=== PATIENT | female | born 1980 | race Caucasian/White ===

== ENCOUNTER 2017-02-19 09:42 | Emergency (ER) | payer OTHER ==
[2017-02-19 11:22] LABS: HEMOGLOBIN 15.3 gm/dl (12.3-15.3); RED BLOOD COUNT 4.74 M/UL (4.00-5.10); WHITE BLOOD COUNT 5.3 K/UL (4.5-11.0)
[2017-02-19 11:42] LABS: BUN/CREATININE RATIO 15 (0-10)
== END 2017-02-19 15:40 | disposition home or self-care (01) ==
LOC: ER1 09:42
PROVIDERS: Physician Assistant
DX: R10.84 Generalized abdominal pain (principal); R19.7 Diarrhea, unspecified; Z88.8 Allergy status to other drugs, medicaments and biological substances; Z88.0 Allergy status to penicillin; Z79.899 Other long term (current) drug therapy
CPT/HCPCS: 36415; 80053; 81001; 82270; 84703; 85025; 96361; 96374; 96375; 96376; 99284; J2270; J2405; J7030; J7050; Q9962

== ENCOUNTER → 2017-02-20 | Outpatient (CLI) | payer OTHER | LOC: OPSV 08:30 | DX: K51.90 Ulcerative colitis, unspecified, without complications (principal) ==

== ENCOUNTER → 2017-02-22 | Outpatient (CLI) | payer OTHER ==
[2017-02-22 10:03] LABS: HEMOGLOBIN 13.7 gm/dl (12.3-15.3); RED BLOOD COUNT 4.31 M/UL (4.00-5.10); WHITE BLOOD COUNT 5.7 K/UL (4.5-11.0)
[2017-02-22 10:24] LABS: BUN/CREATININE RATIO 16 (0-10)
== END ==
LOC: OPSV 08:30
PROVIDERS: Internal Medicine Gastroenterology
DX: K51.90 Ulcerative colitis, unspecified, without complications (principal)
CPT/HCPCS: 36415; 80053; 85027; 86140; 96375; 96413; 96415; J1200; J7050; Q5102

== ENCOUNTER 2020-09-17 04:59 | Inpatient (IN) | payer OTHER ==
[~2020-09-17] VITALS: Ht 157.5 cm; Wt 72.6 kg
[~2020-09-17 04:59] MED LIST: Bromphed DM PO; FLAGYL500 MG PO; LIALDA1.2 GM PO; MACROBID 100 M100 MG PO; ONDANSETRON ODT4 MG PO; XOFLUZA 40 MG PO; ZOFRAN4 MG PO
[2020-09-17 06:08] LABS: HEMOGLOBIN 14.1 gm/dl (12.3-15.3); RED BLOOD COUNT 4.4 M/UL (4.00-5.10); WHITE BLOOD COUNT 17.1 K/UL (4.5-11.0)
[2020-09-17 06:19] LABS: BUN/CREATININE RATIO 16 (0-10)
[2020-09-18] MEDS ORDERED: HYDROCODON-ACE1 EAC4 PO (10:32)
[2020-09-19] MEDS ORDERED: LABETALOL HCL100 MG PO (14:42)
== END 2020-09-19 15:30 | disposition home or self-care (01) | DRG 343 ==
LOC: ER1 04:59 → CDU 10:36 → M/S 10:36
PROVIDERS: Family Medicine; ADMIT Surgery
PROC: 0DTJ4ZZ Resection of Appendix, Percutaneous Endoscopic Approach (ICD-10-PCS; principal; 2020-09-17 10:54)
DX: K35.80 Unspecified acute appendicitis (principal); Z88.1 Allergy status to other antibiotic agents; Z88.0 Allergy status to penicillin; Z20.828 Contact with and (suspected) exposure to other viral communicable diseases
CPT/HCPCS: 71045; 80053; 82150; 82550; 82553; 83690; 83874; 84484; 85025; 87635; 96365; 96375; 96376; 99285; J0360; J1170; J1335; J1885; J2001; J2250; J2270; J2405; J2704; J2710; J3010; J7120; Q9967

== ENCOUNTER → 2020-09-26 | Outpatient (CLI) | payer OTHER ==
[~2020-09-26] MED LIST changes: +HYDROCODON-ACE1 EAC4 PO; +LABETALOL HCL100 MG PO
[2020-09-26 16:25] LABS: HEMOGLOBIN 15.4 gm/dl (12.3-15.3); RED BLOOD COUNT 4.84 M/UL (4.00-5.10); WHITE BLOOD COUNT 8.5 K/UL (4.5-11.0)
[2020-09-26 16:54] LABS: BUN/CREATININE RATIO 18 (0-10)
== END ==
LOC: LAB 14:41
PROVIDERS: Family Medicine
DX: Z13.220 Encounter for screening for lipoid disorders (principal); I10 Essential (primary) hypertension
CPT/HCPCS: 36415; 80053; 84443; 85025

== ENCOUNTER → 2020-09-27 | Outpatient (CLI) | payer OTHER | LOC: LAB 07:38 | DX: Z13.220 Encounter for screening for lipoid disorders (principal); I10 Essential (primary) hypertension | CPT/HCPCS: 36415; 80061 ==

== ENCOUNTER → 2021-02-15 | Outpatient (CLI) | payer OTHER ==
[2021-02-15 13:55] LABS: HEMOGLOBIN 13.1 gm/dl (12.3-15.3); RED BLOOD COUNT 4.06 M/UL (4.00-5.10); WHITE BLOOD COUNT 7.8 K/UL (4.5-11.0)
== END ==
LOC: LAB 12:06
PROVIDERS: Internal Medicine Gastroenterology
DX: K50.00 Crohn's disease of small intestine without complications (principal)
CPT/HCPCS: 36415; 85027

== ENCOUNTER → 2021-06-29 | Outpatient (CLI) | payer OTHER ==
[2021-06-29 14:09] LABS: HEMOGLOBIN 12.7 gm/dl (12.3-15.3); RED BLOOD COUNT 3.92 M/UL (4.00-5.10); WHITE BLOOD COUNT 7.6 K/UL (4.5-11.0)
== END ==
LOC: LAB 13:49
PROVIDERS: Internal Medicine Gastroenterology
DX: K50.00 Crohn's disease of small intestine without complications (principal)
CPT/HCPCS: 36415; 85027

== ENCOUNTER → 2021-07-21 | Day surgery (SDC) | payer OTHER ==
[~2021-07-21] MED LIST changes: +HYDROCODON-ACE1 EAC2 PO; +INFLIXIMAB IV; +LISINOPRIL-HCT1 EAC1 PO; +MERCAPTOPURINE50 MG PO
[2021-07-21 07:08] LABS: BUN/CREATININE RATIO 18 (0-10)
== END | disposition home or self-care (01) ==
LOC: OR 05:33
PROVIDERS: Orthopaedic Surgery
DX: D49.89 Neoplasm of unspecified behavior of other specified sites (principal); I10 Essential (primary) hypertension; Z87.891 Personal history of nicotine dependence; Z88.0 Allergy status to penicillin; Z88.1 Allergy status to other antibiotic agents; Z79.899 Other long term (current) drug therapy
CPT/HCPCS: 36415; 80048; 84703; J1100; J1170; J1885; J2001; J2250; J2405; J2704; J3010; J7120

== ENCOUNTER → 2021-09-05 | Outpatient (CLI) | payer OTHER | LOC: KOH-I 15:00 | DX: J32.9 Chronic sinusitis, unspecified (principal); R51.9 Headache, unspecified | CPT/HCPCS: 70486 ==

== ENCOUNTER → 2022-06-04 | Outpatient (CLI) | payer OTHER ==
[2022-06-04 11:23] LABS: HEMOGLOBIN 13.8 gm/dl (12.3-15.3); RED BLOOD COUNT 4.3 M/UL (4.00-5.10); WHITE BLOOD COUNT 7.3 K/UL (4.5-11.0)
[2022-06-04 11:49] LABS: BUN/CREATININE RATIO 24 (0-10)
[2022-06-05 07:16] LABS: HIV AB/P24 AG SCREEN Non Reactive (Non Reactive)
[2022-06-06 09:13] LABS: CHOLESTEROL, TOTAL 206 mg/dL (100-199); HDL CHOLESTEROL 70 mg/dL (>39); LDL CHOLESTEROL CALC 121 mg/dL (0-99); LDL/HDL RATIO 1.7 ratio (0.0-3.2); T. CHOL/HDL RATIO 2.9 ratio (0.0-4.4); TRIGLYCERIDES 86 mg/dL (0-149)
== END ==
LOC: LAB 10:51
PROVIDERS: Family Medicine
DX: I10 Essential (primary) hypertension (principal); Z11.4 Encounter for screening for human immunodeficiency virus [HIV]; Z13.220 Encounter for screening for lipoid disorders; K50.10 Crohn's disease of large intestine without complications
CPT/HCPCS: 36415; 80053; 80061; 85025; 87389